=== PATIENT | male | born 1945 | race Caucasian/White ===

== ENCOUNTER 2021-01-24 16:14 | Emergency (ER) | payer OTHER ==
--- OUTSIDE RECORDS SUMMARY | 2021-01-24 16:33 | XMS REPORT | Continuity of Care Document ---
:1945 Author Organization [facility] t Address [address] [place] [address] Care Team Providers Name Role Phone Traci MARSH Primary Care Physician Traci MARSH Attending Clinician Problems This patient has no known problems. Allergies, Adverse Reactions, Alerts This patient has no known allergies or adverse reactions. Social History Social Habit Start Date Stop Date Quantity Comments Source Sex Assigned At [birth year] [facility] ethodist 00:00:00 00:00:00 Medications This patient has no known medications. Procedures Procedure Date / Time Performed Performing Clinician [facility] e US VASCULAR SCREENING 2020-11-20 11:10:00 Akshat Aviles HEART SCAN PLUS CT HEART SCAN PLUS W 2020-11-20 10:09:42 Akshat Aviles PHYSICIAN ORDER Plan of Care Planned Activity Planned Date Details Comments Source Future Scheduled 2021-01-31 INFLUENZA VACCINE Quoc harman [facility] 00:00:00 [code = INFLUENZA VACCINE] Future Scheduled 2012 65+ PNEUMOCOCCAL Mendoza [facility] 00:00:00 VACCINE (1 of 1 - PPSV23) [code = 65+ PNEUMOCOCCAL VACCINE (1 of 1 - PPSV23)] Future Scheduled 1997 COLONOSCOPY SCREENING Suresh newman [facility] 00:00:00 [code = COLONOSCOPY SCREENING] Future Scheduled 1997 SHINGLES VACCINES (#1) H monica [facility] 00:00:00 [code = SHINGLES VACCINES (#1)] Future Scheduled 1965 Hepatitis C screening Ho paty [facility] 00:00:00 (procedure) [code = 978303085] Future Scheduled 1959 COVID-19 VACCINE (1) Loridelio shell [facility] 00:00:00 [code = COVID-19 VACCINE (1)] Encounters Start End Encounter Admission Attending Care Care Encounter Source Date/Time Date/Time Type Type Clinicians Facility Department ID 2020-11-20 2020-11-20 [id number] [address] [place] 00:00:00 00:00:00 AKSHAT Mendoza [facility] 2020-11-20 2020-11-20 [facility] [id number] [place] 00:[facility]:00 00:00:00 AKSHAT Casillas [facility] Results Test Description Test Time Test Comments Results Result Sourc e Comments Pv vascular 2020-11-01 Interface, Radiology Lori shell screening heart 1 Results In - Methodi st scan plus (self 19:57:00 11/20/2020 7:58 PM pay) CDT Vascular Diagnostic Laboratory Screening Report [address] [place] [address] Pat.Name: SANDEE BEGUM Pat.ID: [id number] St.Date: 11/20/2020 Refer.MD: AKSHAT AVILES MD Exam Time: 10:25:00 AM Study Type:Screening Age: 2 1945,75Y Sex: MALE Sonogrphr: Iris Guillen RVT Pat. Stat.:Outpatient Tape Vol: YH, Echo Event ID:[id number] Order ID: [id number] Reason for Study:Vascular screening. History of hyperlipidemia. Procedures: Ankle/brachial pressures, Colorflow, Grayscale/2D,Non-imagi ng continuous wave Doppler, Pulsed wave Doppler S UMMARY: V ascular Screening ResultsScreening results are brief snapshots designed to detect functionalabnormal findings of carotid artery disease, abdominal aorticaneurysms (AAA), and peripheral arterial disease (PAD). Please Note: Screening results do not replace a complete vascularexamination.Ca rotid ArteryRight Internal Carotid Artery (X) Abnormal: Plaque present but no stenosis Left Internal Carotid Artery (X) Abnormal: Plaque present but no stenosis.Abdominal Aorta(X) Normal: No evidence of aneurysmal dilatation (less than 3cm).Ankle/Brachial Index(X) Normal: No evidence of peripheral arterial disease (PAD).Recommendations Your results are ABNORMAL. Please take these results to yourphysician and discuss them in further detail. If you do not have a physician you can call our [facility] to schedule an appointment at [phone].--------- -----FINDINGS:-------- ------Signed 11/20/2020 07:57 Christina Chacon MD, RPVI
--- NOTE | 2021-01-24 19:00 | RAD REPORT ---
EXAM DESCRIPTION: RAD - Ankle Left 3 View - 01/24/2021 5:20 pm CLINICAL HISTORY: PAIN COMPARISON: None FINDINGS: No definite left foot fractures identified. Deformity of the calcaneus is presumably relat ed to remote trauma. Midfoot degenerative changes. Vascular clips in the soft tissues. Small linear r adiopaque foreign body within the soft tissues of the heel. IMPRESSION: No left ankle fracture is identified. Small linear radiopaque foreign body within the he el soft tissues. Presumably remote posttraumatic deformity of the calcaneus.
--- NOTE | 2021-01-24 19:01 | RAD REPORT ---
EXAM DESCRIPTION: RAD - Foot Left 3 View - 01/24/2021 5:20 pm CLINICAL HISTORY: PAIN COMPARISON: No comparisons FINDINGS: Remote calcaneal and third proximal phalanx fracture. Deformity at the MTP joints noted. T his may be secondary to neuropathic joints. Midfoot degenerative changes. Vascular clips present. Tin y linear foreign body within the soft tissues of the heel. IMPRESSION: No acute left foot fracture identified. Small linear radiopaque foreign body within the soft tissues of the heel.
[2021-01-24] MEDS ORDERED: IBUPROFEN 400 MG TAB ONE (19:43)
--- NOTE | 2021-01-26 16:50 | ER ---
Nurse's Notes [facility] Gabe Name: Willie Snowden Age: 75 yrs Sex: Male : 1945 Arrival Date: 01/24/2021 Time: 16:23 Bed 15 Private MD: Akshat Aviles V Diagnosis: Sprain of ankle-left;Sprain of foot-left Presentation: 01/24 16:39 Chief complaint: Patient states: L foot pain that began yesterday after stepping in a ss hole a twisting it. Coronavirus screen: Client denies travel out of the [place] in the last 14 days. Ebola Screen: Patient denies exposure to infectious person. Patient denies travel to an Ebola-affected area in the 21 days before illness onset. Initial Sepsis Screen: Does the patient meet any 2 criteria? No. Patient's initial sepsis screen is negative. Does the patient have a suspected source of infection? No. Patient's initial sepsis screen is negative. Risk Assessment: Do you want to hurt yourself or someone else? Patient reports no desire to harm self or others. Onset of symptoms was January 22, 2021. 16:39 Method Of Arrival: Ambulatory ss 16:39 Acuity: LAQUITA 4 ss Triage Assessment: 16:45 General: Appears distressed, uncomfortable, Behavior is cooperative, appropriate for bp age, anxious. Pain: Complains of pain in left foot. EENT: No deficits noted. Neuro: No deficits noted. Cardiovascular: No deficits noted. Respiratory: No deficits noted. GI: No signs and/or symptoms were reported involving the gastrointestinal system. : No signs and/or symptoms were reported regarding the genitourinary system. Derm: No deficits noted. Musculoskeletal: Circulation, motion, and sensation intact. Range of motion: limited in left ankle. Injury Description: Bruise sustained to left foot. Historical: - Allergies: 16:40 No Known Allergies; ss - PMHx: 16:40 Hypertensive disorder; Diabetes mellitus; Hypercholesterolemia; ss - PSHx: 16:40 Appendectomy; R shoulder replacement; L knee replacement; L foot; ss - Immunization history:: Adult Immunizations up to date. - Social history:: Smoking status: Patient denies any tobacco usage or history of. Screenin:33 Abuse screen: Denies threats or abuse. Denies injuries from another. Nutritional bp screening: No deficits noted. Tuberculosis screening: No symptoms or risk factors identified. Fall Risk None identified. Assessment: 16:45 General: SEE TRIAGE NOTE. bp 18:00 Reassessment: No changes from previously documented assessment. Patient and/or family bp updated on plan of care and expected duration. Pain level reassessed. ALL CURRENT ORDERS COMPLETED. 19:29 Reassessment: PT D/C HOME WITH FAMILY, DX WITH ANKLE SPRAIN. bp Vital Signs: 16:39 BP 118 / 49; Pulse 77; Resp 16; Temp 98.7(TE); Pulse Ox 98% on R/A; Weight 118.84 kg; ss Height 5 ft. 6 in. (167.64 cm); Pain 8/10; 17:00 BP 122 / 51; Pulse 75; Resp 17; Pulse Ox 98% ; bp 19:00 BP 115 / 51; Pulse 77; Resp 17; Pulse Ox 98% ; bp 16:39 Body Mass Index 42.29 (118.84 kg, 167.64 cm) ss ED Course: 16:23 Patient arrived in ED. am2 16:23 Akshat Aviles MD is Private Physician. am2 16:40 Triage completed. ss 16:40 Arm band placed on right wrist. ss 16:43 Juan Pablo Torres PA is PHCP. cp 16:43 Demetrius Quezada MD is Attending Physician. cp 16:48 Jad Noyola, DONNIE is Primary Nurse. bp 17:20 XRAY Foot LEFT 3 View In Process Unspecified. EDMS 17:20 XRAY Ankle LEFT 3 view In Process Unspecified. EDMS 18:33 Patient has correct armband on for positive identification. Bed in low position. Call bp light in reach. Side rails up X2. 18:58 Jasbir Baker MD is Referral Physician. cp 19:02 Ortho shoe applied to orthoboot. mh5 19:31 No provider procedures requiring assistance completed. Patient did not have IV access bp during this emergency room visit. Administered Medications: 19:00 Drug: Ibuprofen 800 mg Route: PO; bp 19:29 Follow up: Response: No adverse reaction bp Outcome: 18:59 Discharge ordered by . cp 19:31 Discharged to home via wheelchair, with family. bp 19:31 Condition: stable 19:31 Discharge instructions given to patient, Instructed on discharge instructions, follow up and referral plans. medication usage, Demonstrated understanding of instructions, follow-up care, medications, Prescriptions given X 2. 19:32 Patient left the ED. bp Signatures: Dispatcher [employer] EDThais Coates, DONNIE RN Juan Pablo Corona PA PA cp Martinez, Maria 5 Lia Fan 2 Jad Noyola RN RN bp
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
[2021-01-26 22:17] VITALS: TEMP 98.7; O2SAT 98
[2021-01-26 22:20] VITALS: BP 115/51
== END 2021-01-24 19:32 | disposition home or self-care (01) ==
LOC: ER 16:14
DX: S93.402A Sprain of unspecified ligament of left ankle, initial encounter (principal); S93.602A Unspecified sprain of left foot, initial encounter; X50.1XXA Overexertion from prolonged static or awkward postures, initial encounter; Y93.89 Activity, other specified; I10 Essential (primary) hypertension
CPT/HCPCS: 99284

== ENCOUNTER → 2023-08-28 | Emergency (ER) | payer OTHER ==
[~2023-08-28] MED LIST: CYCLOBENZAPRINE 10 MG TAB ONE; KETOROLAC 30 MG/ML INJ ONE; dexAMETHasone 10 MG/ML VIAL ONE
--- NOTE | 2023-08-28 18:11 | RAD REPORT ---
EXAM DESCRIPTION: CTSpine Lumbar Wo Con08/28/2023 5:46 pm CLINICAL HISTORY: Back injury. Back pain COMPARISON: None TECHNIQUE: Computed axial tomography lumbar spine was obtained with coronal and sagittal reconstruct ion. All CT scans are performed using dose optimization technique as appropriate and may include automated exposure control or mA/KV adjustment according to patient size. FINDINGS: No fracture is seen. No dislocation is noted. Disc bulge, ligamentum flavum and facet hypertrophy at L2-3. Thecal sac 7.5 millimeters. Mild narrowi ng of the neural foramina bilaterally Disc bulge, ligamentum flavum facet hypertrophy L3-4. Thecal sac 7 millimeters. Moderate narrowing of the right mild narrowing left neural foramina Spondylosis L4-5 results in mild central is spinal stenosis Facet hypertrophy L5-S1 results in marked bilateral foraminal stenosis IMPRESSION: Negative for a lumbar fracture. 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
--- NOTE | 2023-08-28 19:29 | ER ---
Nurse's Notes [facility] [place] Name: Willie Snowden Age: 78 yrs Sex: Male : 1945 Arrival Date: 08/28/2023 Time: 16:56 Bed 11 Private MD: Diagnosis: Strain of muscle, fascia and tendon of lower back, initial encounter Presentation: 08/28 17:22 Chief complaint: Patient states: believes "i picked up something wrong". Low back pain nj1 for about 2 weeks, getting worse. Has taken aspirin for pain with no relief. Coronavirus screen: Vaccine status: Patient reports receiving the 2nd dose of the covid vaccine. Ebola Screen: Patient denies travel to an Ebola-affected area in the 21 days before illness onset. Initial Sepsis Screen: Does the patient meet any 2 criteria? No. Patient's initial sepsis screen is negative. Does the patient have a suspected source of infection? No. Patient's initial sepsis screen is negative. Risk Assessment: Do you want to hurt yourself or someone else? Patient reports no desire to harm self or others. Onset of symptoms was August 2023. 17:22 Method Of Arrival: Ambulatory [facility] 17:22 Acuity: LAQUITA 3 [facility] Triage Assessment: 19:00 General: Appears in no apparent distress. Musculoskeletal: Circulation, motion, and bp sensation intact. Range of motion: intact in all extremities. Historical: - Allergies: 17:25 No Known Allergies; nj1 - PMHx: 17:25 diabetes mellitus; Hypercholesterolemia; Hypertensive disorder; nj1 - PSHx: 17:25 Appendectomy; L foot; L knee replacement; R shoulder replacement; nj1 - Immunization history:: Client reports receiving the 2nd dose of the Covid vaccine. - Social history:: Smoking status: Patient denies any tobacco usage or history of. Screenin:40 [facility] ED Fall Risk Assessment (Adult) History of falling in the last 3 months, ph including since admission No falls in past 3 months (0 pts) Confusion or Disorientation No (0 pts) Intoxicated or Sedated No (0 pts) Impaired Gait No (0 pts) Mobility Assist Device Used No (0 pt) Altered Elimination No (0 pt) Score/Fall Risk Level 0 - 2 = Low Risk Oriented to surroundings, Maintained a safe environment, Provided non-skid footwear, Hourly rounding (assess needs \\T\\ fall precautionary measures) done. Abuse screen: Denies threats or abuse. Denies injuries from another. Nutritional screening: No deficits noted. Tuberculosis screening: No symptoms or risk factors identified. Assessment: 18:39 General: Appears in no apparent distress. uncomfortable, Behavior is calm, cooperative, ph appropriate for age. Pain: Complains of pain in right low back Pain radiates to right leg. Neuro: Level of Consciousness is awake, alert, obeys commands, Oriented to person, place, time, situation. Cardiovascular: Capillary refill < 3 seconds in bilateral fingers. Derm: Skin is pink, warm \\T\\ dry. Musculoskeletal: Circulation, motion, and sensation intact. Range of motion: intact in all extremities. 19:51 Reassessment: [place] [facility]. bp Vital Signs: 17:22 BP 140 / 80; Pulse 80; Resp 18; Temp 97.9(O); Pulse Ox 94% ; Weight 113.4 kg; Height 5 nj1 ft. 7 in. ; Pain 8/10; 17:22 Body Mass Index 39.16 (113.40 kg, 170.18 cm) nj1 17:22 Pain Scale: Adult [facility] ED Course: 17:00 Patient arrived in ED. mg5 17:16 Tessie Mak PA-C is PHCP. sb4 17:16 Juan Pablo Cowan MD is Attending Physician. sb4 17:25 Triage completed. nj1 17:25 Arm band placed on right wrist. nj1 17:45 CT Lumbar Spine Wo Con In Process Unspecified. EDMS 17:56 Beatrice Mayers, RN is Primary Nurse. ph 18:40 Patient has correct armband on for positive identification. Bed in low position. Side ph rails up X 1. Door closed. Noise minimized. 18:40 No provider procedures requiring assistance completed. Patient did not have IV access ph during this emergency room visit. Administered Medications: 18:38 Drug: Ketorolac IM 30 mg IM once Route: IM; Site: right deltoid; ph 19:51 Follow up: Response: No adverse reaction bp 18:38 Drug: Dexamethasone IM 10 mg IM once Route: IM; Site: right deltoid; ph 19:51 Follow up: Response: No adverse reaction bp 18:38 Drug: Cyclobenzaprine PO 10 mg PO once Route: PO; ph 19:51 Follow up: Response: No adverse reaction bp Medication: 19:51 VIS not applicable for this client. bp Outcome: 19:29 Discharge ordered by MD. snell 19:51 Discharged to home ambulatory, bp 19:51 Condition: stable 19:51 Discharge instructions given to patient, Instructed on discharge instructions, follow up and referral plans. medication usage, Demonstrated understanding of instructions, follow-up care, medications, Prescriptions given X 4, 19:52 Patient left the ED. bp Signatures: Dispatcher [employer] EDLA Beatrice Mayers, RN RN Jad Noyola, RN RN bp Tessie Mak PAMakenzie PAMakenzie lindo4 Sarah Rice RN RN nj1 Laxmi Dye mg5 Corrections: (The following items were deleted from the chart) 17:26 17:22 Pulse 80bpm; Resp 18bpm; Temp 97.9F Oral; 113.4 kg; Height 5 ft. 7 in.; BMI: nj1 39.1; Pain 8/10, Adult; nj1
--- NOTE | 2023-08-28 19:29 | EDPHYS ---
Physician Documentation [facility] Name: Willie Snowden Age: 78 yrs Sex: Male : 1945 Arrival Date: 08/28/2023 Time: 16:56 Bed 11 Private MD: Juan Pablo Beck HPI: 08/28 18:04 This 78 yrs old Male presents to ER via Ambulatory with complaints of Back Pain. sb4 18:04 The patient presents with pain that is acute, and an injury. The symptoms are located sb4 in the right low back. Onset: The symptoms/episode began/occurred 2 week(s) ago. The pain does not radiate. The problem was sustained when lifting heavy object. Modifying factors: The patient symptoms are alleviated by rest, the patient symptoms are aggravated by lifting, movement, walking. The patient has not experienced similar symptoms in the past. The patient has been recently seen by a physician:. Historical: - Allergies: 17:25 No Known Allergies; nj1 - PMHx: 17:25 diabetes mellitus; Hypercholesterolemia; Hypertensive disorder; nj1 - PSHx: 17:25 Appendectomy; L foot; L knee replacement; R shoulder replacement; nj1 - Immunization history:: Client reports receiving the 2nd dose of the Covid vaccine. - Social history:: Smoking status: Patient denies any tobacco usage or history of. ROS: 18:04 Constitutional: Negative for fever, chills, and weight loss, sb4 18:04 Back: Positive for injury or acute deformity, pain at rest, pain with movement, of the right low back, 18:04 All other systems are negative, Exam: 18:04 Constitutional: This is a well developed, well nourished patient who is awake, alert, sb4 and in no acute distress. Head/Face: Normocephalic, atraumatic. Eyes: Extra-ocular motions intact. Periorbital areas with no swelling, redness, or edema. ENT: Mucous membranes moist. Cardiovascular: Regular rate and rhythm with a normal S1 and S2. Respiratory: Lungs have equal breath sounds bilaterally, clear to auscultation and percussion. No rales, rhonchi or wheezes noted. No increased work of breathing, no retractions or nasal flaring. Abdomen/GI: Soft, non-tender, no distension. Skin: Warm, dry with normal turgor. Normal color with no rashes, no lesions, and no evidence of cellulitis. MS/ Extremity: Pulses equal, no cyanosis. Neurovascular intact. Full, normal range of motion. 18:04 Back: pain, that is moderate, ROM is painful, normal spinal alignment noted, CVA tenderness, is absent, vertebral tenderness, is not appreciated, muscle spasm, is not present, 18:04 Neuro: Motor: is normal, Sensation: is normal, Gait: is steady, Vital Signs: 17:22 BP 140 / 80; Pulse 80; Resp 18; Temp 97.9(O); Pulse Ox 94% ; Weight 113.4 kg; Height 5 nj1 ft. 7 in. ; Pain 8/10; 17:22 Body Mass Index 39.16 (113.40 kg, 170.18 cm) nj1 17:22 Pain Scale: Adult nj1 MDM: 17:27 Patient medically screened. sb4 18:04 Differential diagnosis: Fracture Joint Injury ruptured disc, spinal injury, sprain, sb4 vertebral fracture. 19:29 Data reviewed: vital signs, nurses notes, radiologic studies, and as a result, I will sb4 discharge patient. Counseling: I had a detailed discussion with the patient and/or guardian regarding the historical points, exam findings, and any diagnostic results supporting the discharge/admit diagnosis, radiology results, to return to the emergency department if symptoms worsen or persist or if there are any questions or concerns that arise at home. 08/28 17:32 Order name: CT Lumbar Spine Wo Con; Complete Time: 18:13 sb4 Administered Medications: 18:38 Drug: Ketorolac IM 30 mg IM once Route: IM; Site: right deltoid; ph 19:51 Follow up: Response: No adverse reaction bp 18:38 Drug: Dexamethasone IM 10 mg IM once Route: IM; Site: right deltoid; ph 19:51 Follow up: Response: No adverse reaction bp 18:38 Drug: Cyclobenzaprine PO 10 mg PO once Route: PO; ph 19:51 Follow up: Response: No adverse reaction bp Disposition Summary: 08/28/23 19:29 Discharge Ordered Notes: Location: Home sb4 Problem: new sb4 Symptoms: have improved sb4 Condition: Stable sb4 Diagnosis - Strain of muscle, fascia and tendon of lower back, initial encounter sb4 Followup: sb4 - With: Private Physician - When: As needed - Reason: Further diagnostic work-up, Recheck today's complaints, Re-evaluation by your physician Discharge Instructions: - Discharge Summary Sheet sb4 - Acute Back Pain, Adult sb4 - Low Back Sprain or Strain Rehab sb4 Forms: - Thank You Letter sb4 - Patient Portal Instructions sb4 - Leadership Thank You Letter sb4 Prescriptions: - Cyclobenzaprine 10 mg Oral Tablet - take 1 tablet ORAL route every 8 hours As needed; 30 tablet; Refills: 0, sb4 Product Selection Permitted - Diclofenac Sodium 75 mg Oral Tablet Sustained Release - take 1 tablet ORAL route 2 times per day; 30 tablet; Refills: 0, Product sb4 Selection Permitted - Medrol (Waqas) 4 mg Oral Tablets, Dose Pack - take 1 tablet ORAL route as directed - follow package instructions; 1 packet; sb4 Refills: 0, Product Selection Permitted Signatures: Dispatcher [employer] Beatrice Reynolds RN RN ph Brown, Sophia, PA-C PA-C sb4 Sarah Rice RN RN nj1 Jad Noyola RN bp
[2023-08-28 20:16] VITALS: BP 140/80; TEMP 97.9; O2SAT 94
== END ==
LOC: ER 16:56
DX: S39.012A Strain of muscle, fascia and tendon of lower back, initial encounter (principal)
CPT/HCPCS: 72131; 96372; 99284; J1100

== ENCOUNTER 2024-01-03 07:45 | Day surgery (SDC) | payer OTHER ==
[2024-01-03 08:49] LABS: Absolute Basophils 0.1 K/uL (0-0.5); Absolute Eosinophils 0.2 K/uL (0-0.5); Absolute Lymphocytes (CBC) 1.4 K/uL (0.7-4.9); Absolute Monocytes 0.7 K/uL (0.1-1.3); Absolute Neutrophil 4.2 K/uL (1.8-8.0); Eosinophils % 2.6 % (0-4.4); Hematocrit 40.8 % (39.6-49.0); Lymphocytes % 20.8 % (15.3-44.8); MCH 30.8 pg (27.0-35.0); MCHC 34.2 g/dL (32.0-36.0); MCV 90.1 fL (80-100); MPV 7.5 fL (7.6-11.3); Monocytes % 11.5 % (3.3-12.3); Neutrophils % 64.1 % (41.7-73.7); Nucleated Red Blood Cells % 0.1 % (0-0); Platelets 240 thou/uL (152-406); RBC Red Blood Cell Count 4.53 M/uL (4.33-5.43); Red Cell Distribution Width 13.2 % (12.1-15.2)
[2024-01-03 08:52] LABS: PT Prothrombin Time 12.4 SECONDS (9.4-12.5); PTT, Activated Partial Thromb 32.3 SECONDS (24.3-36.9); Protime INR 1.13
[2024-01-03 09:00] LABS: Albumin 3.5 g/dL (3.4-5.0); Albumin/Globulin Ratio 1.2 (1.1-1.8); Anion Gap 4.5 mEq/L (5.0-15.0); Bilirubin Direct 0.3 mg/dL (0-0.2); Bilirubin Indirect, Calculated 0.5 mg/dL (0.2-0.8); Bilirubin Total 0.8 mg/dL (0.2-1.0); Potassium 3.5 mEq/L (3.5-5.1); Protein, Total 6.5 g/dL (6.4-8.2)
[2024-01-03] MEDS: DIAZEPAM 5 MG TABLET ONE (09:45)
--- NOTE | 2024-01-03 11:38 | RAD REPORT ---
EXAM DESCRIPTION: RAD - Lumbar Puncture For Dx - 01/03/2024 11:19 am CLINICAL HISTORY: No comparisons COMPARISON: None. TECHNIQUE: The procedure, risks and alternatives to the procedure were discussed with the patient in detail. After answering all questions, both oral and written consent were obtained. Time-out procedu re was performed. The patient was placed in an oblique prone position on the fluoroscopic table. The skin of the lower back was prepped and draped in the usual sterile fashion. After anesthetizing the skin and deeper sof t tissues with 1% lidocaine, a 22 gauge needle was advanced into the thecal sac at the level. L2-3 At the conclusion of the procedure the needle was withdrawn and a sterile bandage placed over the pun cture site. The patient tolerated the procedure well without immediate complications. Post-procedure care and precaution instructions were discussed with the patient before the LP procedure. Fluoroscopy time: 0.1 minutes IMPRESSION: Successful fluoroscopic guided lumbar puncture. All obtained fluid was sent to the lab f or studies requested by the referring physician.
[2024-01-03 12:04] LABS: CSF Glucose 61 mg/dL (40-70)
[2024-01-03 12:26] LABS: Body Fluid Source CSF; Color of fluid Colorless (COLORLESS); Tube # #4
[2024-01-03 12:27] LABS: Appearance CLEAR (CLEAR); Body Fluid WBC 2 /mm^3; Color of Supernate Not Xanthochromic (Not Xantho)
[2024-01-03 13:21] VITALS: O2SAT 96; BMI 39.1
[2024-01-03 13:37] VITALS: BP 142/75; TEMP 98.5
== END 2024-01-03 13:01 | disposition home or self-care (01) ==
LOC: DS 07:45
PROVIDERS: ATTEND Psychiatry & Neurology Neurology with Special Qualifications in Child Neurology
PROC: 009U3ZX Drainage of Spinal Canal, Percutaneous Approach, Diagnostic (ICD-10-PCS; principal; 2024-01-03)
PROC: B01BZZZ Fluoroscopy of Spinal Cord (ICD-10-PCS; 2024-01-03)
DX: F03.90 Unspecified dementia, unspecified severity, without behavioral disturbance, psychotic disturbance, mood disturbance, and anxiety (principal); E11.9 Type 2 diabetes mellitus without complications; E78.5 Hyperlipidemia, unspecified; I10 Essential (primary) hypertension
CPT/HCPCS: 36415; 77003; 80048; 80076; 82542; 82945; 84157; 85025; 85610; 85730; 89050